=== PATIENT | female | born 1990 | race Caucasian/White ===

== ENCOUNTER → 2020-11-21 16:09 | Outpatient (CLI) | payer BC, SELFPAY | PROVIDERS: Referring Provider Obstetrics & Gynecology; Visit Provider Obstetrics & Gynecology | DX: O20.0 Threatened abortion (principal); Z3A.00 Weeks of gestation of pregnancy not specified | CPT/HCPCS: 84702; 86850; 86900; 86901 ==

== ENCOUNTER → 2020-12-03 16:27 | Outpatient (CLI) | payer BC, SELFPAY ==
[2020-12-03 14:23] VITALS: BMI 26.6
[2020-12-03 17:34] LABS: Amphetamine Urine VISTA NEGATIVE (<1000 ng/mL); Barbiturate Urine VISTA NEGATIVE (< 200 ng/mL); Benzodiazepine Urine VISTA NEGATIVE (< 200 ng/mL); Cocaine Urine VISTA NEGATIVE (< 300 ng/mL); Ecstacy Urine VISTA NEGATIVE (< 500 ng/mL); Methadone Urine VISTA NEGATIVE (< 300 ng/mL); PCP Urine VISTA NEGATIVE (< 25 ng/mL); THC Urine VISTA NEGATIVE (< 50 ng/mL); Vista UDS pH Range 5
[2020-12-06 03:07] LABS: Chlamydia By Nucleic Acid AMP Negative (Negative)
[2020-12-06 07:29] LABS: Gonococcus By Nucleic Acid AMP Negative (Negative)
[2020-12-07 15:44] LABS: HPV APTIMA, High Risk Negative (Negative)
== END ==
PROVIDERS: Referring Provider Obstetrics & Gynecology; Visit Provider Obstetrics & Gynecology
DX: Z34.90 Encounter for supervision of normal pregnancy, unspecified, unspecified trimester (principal)
CPT/HCPCS: 80307; 87086; 87088; 87491; 87591; 87624; 88175; G0145

== ENCOUNTER → 2021-01-25 08:25 | Outpatient (CLI) | payer BC, SELFPAY ==
[2020-12-31 11:25] VITALS: BMI 25.9
[2021-01-25 09:17] LABS: Absolute Lymphocyte Count 0.76 X10^3/uL (0.83-4.51); Absolute Neutrophil Count 4.3 X10^3/uL (2.0-7.7); Basophil# 0.01 X10^3/uL; Basophil% 0.2 % (0-1); Eosinophil# 0.09 X10^3/uL; Eosinophils% 1.6 % (0-5); Hematocrit 39.4 % (37-47); Hemoglobin 13.3 g/dL (12.0-15.0); Lymphocyte # 0.76 X10^3/ul (0.83-4.51); Lymphocyte % 13.5 % (19-41); Mean Corp Hgb Conc 33.8 g/dL (32-36); Mean Corpuscular Hgb 33.1 pg (27.0-32.0); Mean Platelet Vol. 11.6 fl (6.2-12.0); Monocyte# 0.39 X10^3/uL; Monocyte% 6.9 % (0-10); NRBC Flagged by Analyzer 0 % (0-5); Neutrophil # 4.33 X10^3/uL (2.7-7.7); Neutrophil % 77.1 % (47-70); Platelet Count 146 K/mm3 (150-450); RBC Distribution Width CV 13.7 % (11.6-14.6); RBC Distribution Width SD 49.1 fl (35.1-43.9); Red Blood Count 4.02 M/mm3 (4.2-5.4); White Blood Count 5.6 K/mm3 (4.4-11.0)
[2021-01-25 09:41] LABS: Glucose Challenge Gest 1H 50g 103 mg/dL (70-140)
[2021-01-25 10:24] LABS: HIV - WCH Non-Reactive (Nonreactive); Hepatitis B Surface Antigen Non-Reactive (Nonreactive); Hepatitis C Antibody Non-Reactive (Nonreactive); Rubella IgG Reactive (Nonreactive)
== END ==
PROVIDERS: Obstetrics & Gynecology; Referring Provider Obstetrics & Gynecology; Visit Provider Obstetrics & Gynecology
DX: Z34.90 Encounter for supervision of normal pregnancy, unspecified, unspecified trimester (principal)
CPT/HCPCS: 36415; 82950; 85025; 86703; 86762; 86803; 86850; 86900; 86901; 87340

== ENCOUNTER → 2021-04-22 09:16 | Outpatient (CLI) | payer BC, SELFPAY ==
[2021-04-01 11:56] VITALS: BMI 25.9
[2021-04-22 09:39] LABS: Absolute Lymphocyte Count 0.73 X10^3/uL (0.83-4.51); Absolute Neutrophil Count 4.1 X10^3/uL (2.0-7.7); Basophil# 0.02 X10^3/uL; Basophil% 0.4 % (0-1); Eosinophil# 0.05 X10^3/uL; Eosinophils% 0.9 % (0-5); Hematocrit 37.3 % (37-47); Hemoglobin 12.5 g/dL (12.0-15.0); Lymphocyte # 0.73 X10^3/ul (0.83-4.51); Lymphocyte % 13.4 % (19-41); Mean Corp Hgb Conc 33.5 g/dL (32-36); Mean Corpuscular Hgb 33.2 pg (27.0-32.0); Mean Corpuscular Volume 98.9 fL (81-99); Mean Platelet Vol. 10.6 fl (6.2-12.0); Monocyte# 0.43 X10^3/uL; Monocyte% 7.9 % (0-10); NRBC Flagged by Analyzer 0 % (0-5); Neutrophil # 4.12 X10^3/uL (2.7-7.7); Neutrophil % 75.9 % (47-70); Platelet Count 159 K/mm3 (150-450); RBC Distribution Width CV 13.6 % (11.6-14.6); RBC Distribution Width SD 48.7 fl (35.1-43.9); Red Blood Count 3.77 M/mm3 (4.2-5.4); White Blood Count 5.4 K/mm3 (4.4-11.0)
[2021-04-22 10:12] LABS: Glucose Challenge Gest 1H 50g 133 mg/dL (70-140)
== END ==
PROVIDERS: Referring Provider Obstetrics & Gynecology; Visit Provider Obstetrics & Gynecology
DX: Z34.80 Encounter for supervision of other normal pregnancy, unspecified trimester (principal)
CPT/HCPCS: 36415; 82950; 85025

== ENCOUNTER → 2021-05-06 | Outpatient (CLI) | payer BC, SELFPAY ==
[2021-05-06 11:53] VITALS: BMI 28.5
[2021-05-06 16:20] LABS: Amphetamine Urine VISTA NEGATIVE (<1000 ng/mL); Barbiturate Urine VISTA NEGATIVE (< 200 ng/mL); Benzodiazepine Urine VISTA NEGATIVE (< 200 ng/mL); Cocaine Urine VISTA NEGATIVE (< 300 ng/mL); Ecstacy Urine VISTA NEGATIVE (< 500 ng/mL); Methadone Urine VISTA NEGATIVE (< 300 ng/mL); PCP Urine VISTA NEGATIVE (< 25 ng/mL); THC Urine VISTA NEGATIVE (< 50 ng/mL); Vista UDS pH Range 6
== END | disposition home or self-care (01) ==
LOC: LABSPEC 15:27
PROVIDERS: Referring Provider Obstetrics & Gynecology; Visit Provider Obstetrics & Gynecology
DX: F12.90 Cannabis use, unspecified, uncomplicated (principal)
CPT/HCPCS: 80307

== ENCOUNTER → 2021-06-17 15:05 | Outpatient (CLI) | payer BC, SELFPAY | PROVIDERS: Referring Provider Obstetrics & Gynecology; Visit Provider Obstetrics & Gynecology | DX: Z34.90 Encounter for supervision of normal pregnancy, unspecified, unspecified trimester (principal) | CPT/HCPCS: 87081 ==

== ENCOUNTER → 2021-07-01 14:44 | Outpatient (CLI) | payer BC, SELFPAY | PROVIDERS: Referring Provider Obstetrics & Gynecology; Visit Provider Obstetrics & Gynecology | DX: Z34.90 Encounter for supervision of normal pregnancy, unspecified, unspecified trimester (principal) | CPT/HCPCS: 87635; U0005; U0003 ==

== ENCOUNTER 2021-07-05 09:50 | Inpatient (IN) | payer BC, SELFPAY ==
[2021-04-22 09:56] VITALS: BMI 25.9
[2021-07-05] VITALS (18 sets, daily range): BP systolic 92–136; BP diastolic 60–86; PULSE 69–106; RESP 12–18; TEMP 35.6–36.4; O2SAT 93–100; BMI 28.7
[2021-07-05] MEDS: Lactated Ringers 1,000 ML 999 ML IV (10:20)
--- NOTE | 2021-07-05 10:40 | HP.PCM.OB_ITS ---
HPI - General General Date of Admission: 07/05/21 HPI Narrative FAHAD CALDWELL, is a 30 F who presents for RLTCS and BS Maternal Data Information AG Calculator Estimated Delivery Date Method Current WG Current Estimate 07/12/21 LMP (Certain) 39w 0d Other Estimates 07/13/21 Ultrasound #1 38w 6d PFSH PFSH Medical History History of tetanus, diphtheria, and acellular pertussis booster vaccination (Tdap) Home Medications multivitamin no.47-iron fum 27 mg-folate no.1 1 mg-dha 300 mg capsule cap PO 11/28/20 [History Last Taken Unknown] Allergy/AdvReac Type Severity Reaction Status Date / Time Penicillins Allergy Unknown Unknown Verified 07/01/21 13:12 codeine Allergy rash Verified 07/01/21 13:12 Family History Father Hypertension Grandfather Hypertension Grandmother Cancer Skin Grandfather Cancer Lung Surgical History H/O section Social History adopted: No household members: family housing: house number of children: 1 current occupational status: employed current occupation: Realtor pets and animals: Yes Smoking Status: Never smoker second hand exposure: Yes alcohol intake: current alcohol intake frequency: holidays/special occasions only details: not while substance use type: marijuana seatbelt use: always do you feel safe at home: Yes additional social history: - Barron History 2 Elective abortions Hx Para 1 Spontaneous abortions Hx # Term Pregnancies Ectopic pregnancies Hx # Pregnancies Multiple births # of living children 1 Past Pregnancies Del. Date Name GA/Weeks Outcome Route Bth Weight Gen Labor Lgth Anesthesia Del Locatn Provider FOB 12/12/18 Bry 38 live - full term 7lbs 14.5oz Ma le 19 hours epidural [facility] Dr. Kwadwo Mart Delivery Date: 12/12/18 SRoM, pushed for 3.5 hours; failed vacuum; borderline GDM Renae Saavedra Visit Details Expected Delivery Route/Plan RLTCS with SM Labor Preferences- CB/BF classes: no labor support person: Barron labor intervention preferences: [] pain management options preferred: RLTCS cut cord/dad catch: [] : no PP control planned: BS with CS discussed possible routes of delivery and associated risks: [] special requests: [] Plans Covid:nonimmune, counseled regarding risk of covid in vs vaccination and declined vaccination flu vaccine: no tdap vaccine: given rhogam: na LARC form signed: yes movement and labor precautions reviewed. Problem list reviewed and updated with the most current plan of care details and appropriate orders placed. Relevant counseling for the gestational age provided. Continue routine care and follow up unless otherwise noted in visit notes/problem list details OB Flowsheet Initial Weight: 140 lb Date -?-?-?-?-?-?-?-?-?-?-?-?- EGA Weight BP Urine Prot -?-?-?-?-?-?-?-?-?-?-?-?- Glucose FHR FuHt Pres Dilation -?-?-?-?-?-?-?-?-?-?-?-?- Effaced St Visit Note 12/03/20 -?-?-?-?-?-?-?-?-?-?-?-?- 8w 3d 141 lb (+16 oz) 114/80 -?-?--?-?-?-?-?-?-?-?-?-?- 170 -?-?-?-?-?-?-?-?-?-?-?-?- GP - CRL 16mm co nsistent with LMP. 12/31/20 -?-?-?-?-?-?-?-?-?-?-?-?- 12w 3d 137 lb 8 oz (-2 lb 8 oz) 116/78 Negative -?-?-?-?-?-?-?-?-?-?-?-?- Negative 160 -?-?-?-?-?-?-?-?-?-?-?-?- GP - no cramping or bleeding. Anatomy scan ordered. Has not yet done NOB labs and GCT - will do before next visit. 01/28/21 -?-?-?-?-?-?-?-?-?-?-?-?- 16w 3d 139 lb (-16 oz) 120/82 -?-?-?-?-?-?-?-?-?-?-?-?- 145 -?-?-?-?-?-?-?-?-?-?-?-?- SM- no vb crampi ng 02/25/21 -?-?-?-?-?-?-?-?-?-?-?-?- 20w 3d 142 lb 2 oz (+2 lb 2 oz) 120/80 Negative -?-?-?-?-?-?-?-?-?-?-?-?- Negative 150 -?-?-?-?-?-?-?-?-?-?-?-?- GP - no LOF, VB, DFM, ctx. Anatomy scan today. 04/01/21 -?-?-?-?-?-?-?-?-?-?-?-?- 25w 3d 147 lb (+7 lb) 120/76 Negative -?-?-?-?-?-?-?-?-?-?-?-?- Negative 145 25 -?-?-?-?-?-?-?-?-?-?-?-?- Sm- no vb lof go od fm no reuglar ctx 04/22/21 -?-?-?-?-?-?-?-?-?-?-?-?- 28w 3d 148 lb 6 oz (+8 lb 6 oz) 118/64 Trace -?-?-?-?-?-?-?-?-?-?-?-?- Negative 149 28 -?-?-?-?-?-?-?-?-?-?-?-?- MH-No VB, LOF. G ood FM. 28 wk labs, tdap, larc 05/06/21 -?-?-?-?-?-?-?-?-?-?-?-?- 30w 3d 151 lb 4 oz (+11 lb 4 oz) 138/92 116/78 Negative -?-?-?-?-?-?-?-?-?-?-?-?- Negative 145 30 -?-?-?-?-?-?-?-?-?-?-?-?- GP - no LOF, VB, dFM, ctx. Denies complaints. Initial BP high - repeat nl. 05/20/21 -?-?-?-?-?-?-?-?-?-?-?-?- 32w 3d 150 lb 6 oz (+10 lb 6 oz) 118/72 Negative -?-?-?-?-?-?-?-?-?-?-?-?- Negative 130 32 -?-?-?-?-?-?-?-?-?-?-?-?- GP - no LOF, VB, DFM, ctx. Denies complaints. 06/17/21 -?-?-?-?-?-?-?-?-?-?-?-?- 36w 3d 156 lb (+16 lb) 114/70 Negative -?-?-?-?-?-?-?-?-?-?-?-?- Negative 130 37 -?-?-?-?-?-?-?-?-?-?-?-?- SM- no vb lof go od fm no reuglar ctx gbs done 06/24/21 -?-?-?-?-?-?-?-?-?-?-?-?- 37w 3d -?--?-?-?-?-?-?-?-?-?-?-?- 130 -?-?-?-?-?-?-?-?-?-?-?-?- SM- co nodular r shagufta over back buttox arms and some on belly, pruritic. steroids ordered. no vb lof good fm no reuglar ctx 07/01/21 -?-?-?-?-?-?-?-?-?-?-?-?- 38w 3d 156 lb 6 oz (+16 lb 6 oz) 110/88 Negative -?-?-?-?-?-?-?-?-?-?-?-?- Negative 131 38 -?-?-?-?-?-?-?-?-?-?-?-?- MH-No VB, LOF. N o reg CTX, declines internal. Good FM. CS scheduled 07/06 noon. aware to arrive 2 hr prior. Call prior. Information and drink given. 07/05/21 -?-?-?-?-?-?-?-?-?-?-?-?- 39w 0d 152 lb 1.903 oz (+12 lb 1.903 oz) -?-?-?-?-?-?-?-?-?-?-?-?- -?-?-?-?-?-?-?-?-?-?-?-?- NST FHR Rate Baby A Baseline: 130 ROS Constitutional Constitutional: Reports systems reviewed and no addt'l complaints, except as documented Eyes Eyes: Denies change in vision ENT HEENT: Reports systems reviewed and no addt'l complaints, except as documented; Denies headache(s) Cardiovascular Cardiovascular: Reports systems reviewed and no addt'l complaints, except as documented; Denies chest pain or dyspnea Respiratory/Chest Respiratory/Chest: Reports systems reviewed and no addt'l complaints, except as documented Gastrointestinal Gastrointestinal: Reports systems reviewed and no addt'l complaints, except as documented; Denies abdominal pain Genitourinary Genitourinary: Reports systems reviewed and no addt'l complaints, except as documented, contractions Details: present (irregular) and movement Details: present; Denies dysuria or genital lesions Musculoskeletal Musculoskeletal: Reports systems reviewed and no addt'l complaints, except as documented Neurologic Neurologic: Reports systems reviewed and no addt'l complaints, except as documented Endocrine Endocrinology: Reports systems reviewed and no addt'l complaints, except as documented Vital Signs Vital Signs Vital Signs: Weight Weight: 152 lb 1.903 oz Body Mass Index (BMI) 28.7 Physical Exam Const alert, oriented x3, no apparent distress and healthy appearing HEENT normocephalic and moist oral mucous membranes Head and Scalp: atraumatic Neck full ROM, no lymphadenopathy, supple and thyroid normal General: trachea midline Lymph Lymphatic: no lymphadenopathy noted Chest inspection of chest normal Resp normal respiratory effort Cardio regular rate GI normal to inspection, nondistended, normoactive bowel sounds, soft to palpation and non-tender Inspection: gravid external exam normal Manual OB Exam: estimated gestational size appropriate, presentation cephalic, dilated, effaced and station Extremity normal to inspection General Extremity: Negative for edema Skin no rashes or lesions noted Neuro no focal motor deficits and deep tendon reflexes 2+ bilaterally Motor Exam: strength 5/5 throughout and clonus absent Psych mental status grossly normal Labs Labs Labs: Blood Type A POSITIVE Antibody Screen NEGATIVE Hct 37.3 % (37-47) Hgb 12.5 g/dL (12.0-15.0) Syphilis Total Ab Pending Rubella IgG Antibody Reactive (Nonreactive) Hep Bs Antigen Non-Reactive (Nonreactive) Neisseria gonorrhoeae DNA (JARVIS) Negative (Negative) HIV 1&2 Antibody Non-Reactive (Nonreactive) Glucose 1 Hr 50 gm 133 mg/dL (70-140) Assessment & Plan (1) : QUALIFIERS: Weeks of gestation: 38 weeks Qualified Code(s): Z3A.38 - 38 weeks gestation of COMMENT: declines carrier and genetic, ntd screening. nl anatomy; NEG COVID (2) H/O section: COMMENT: 2019- pushed for 3.5 hours failed vacuum. Plan RCD w SM. RLTCS 07/05/21 @ 12 (3) Supervision of other normal : COMMENT: PRR AG 07/12/21, boy, PC: Bry Spouse: Barron (4) Marijuana use: COMMENT: prior to - has not used since finding out she was expecting (5) H/O depression, currently : COMMENT: undiagnosed. Did see counselor. Stable, declines med. Info on counselors given (6) Rash: COMMENT: possible pupps, ordered steroid pack. recommend urgent care eval to rule out infecitous etiology first. (7) Sterilization:
[2021-07-05 10:41] LABS: Absolute Lymphocyte Count 0.77 X10^3/uL (0.83-4.51); Absolute Neutrophil Count 3.9 X10^3/uL (2.0-7.7); Basophil# 0.01 X10^3/uL; Basophil% 0.2 % (0-1); Eosinophil# 0.03 X10^3/uL; Eosinophils% 0.6 % (0-5); Hematocrit 34.2 % (37-47); Hemoglobin 11.4 g/dL (12.0-15.0); Lymphocyte # 0.77 X10^3/ul (0.83-4.51); Lymphocyte % 15.1 % (19-41); Mean Corp Hgb Conc 33.3 g/dL (32-36); Mean Corpuscular Hgb 29.5 pg (27.0-32.0); Mean Corpuscular Volume 88.4 fL (81-99); Mean Platelet Vol. 11.2 fl (6.2-12.0); Monocyte# 0.31 X10^3/uL; Monocyte% 6.1 % (0-10); NRBC Flagged by Analyzer 0 % (0-5); Neutrophil # 3.92 X10^3/uL (2.7-7.7); Neutrophil % 76.8 % (47-70); Platelet Count 171 K/mm3 (150-450); RBC Distribution Width CV 13.9 % (11.6-14.6); RBC Distribution Width SD 44.5 fl (35.1-43.9); Red Blood Count 3.87 M/mm3 (4.2-5.4); White Blood Count 5.1 K/mm3 (4.4-11.0)
[2021-07-05] MEDS: Acetaminophen 500 MG Tablet 1000 MG PO ×3 (10:41→22:48)
[2021-07-05 10:57] LABS: Amphetamine Urine VISTA NEGATIVE (<1000 ng/mL); Barbiturate Urine VISTA NEGATIVE (< 200 ng/mL); Benzodiazepine Urine VISTA NEGATIVE (< 200 ng/mL); Cocaine Urine VISTA NEGATIVE (< 300 ng/mL); Ecstacy Urine VISTA NEGATIVE (< 500 ng/mL); Methadone Urine VISTA NEGATIVE (< 300 ng/mL); PCP Urine VISTA NEGATIVE (< 25 ng/mL); THC Urine VISTA NEGATIVE (< 50 ng/mL); Vista UDS pH Range 7
[2021-07-05] MEDS: Lactated Ringers 1,000 ML 150 ML IV (11:03)
[2021-07-05 11:40] LABS: Syphilis Antibodies Non-reactive
[2021-07-05] MEDS: Sodium Citrate/Citric Acid 30 ML UDC PO (12:08)
[2021-07-05] MEDS: Cefazolin 2 GM in 0.9% Normal Saline 100 ML IV (12:16)
[2021-07-05] MEDS: Oxytocin 30 units/NS 500 ml 30 UNITS/500 ML IV.SOLN 167 UNITS IV (13:40)
--- NOTE | 2021-07-05 14:22 | FALS_PTH ---
PATIENT: FAHAD CALDWELL LOC: [facility] U#:[id number] AGE/SX: 30/F ROOM: [facility] RE07/05/[address]: Dr. Katharina Echavarria MD : 1990 BED: 1 DIS: 07/06/2021 SPEC #: [id number] RECD: 07/08/21 08:01 STATUS: LUCERO REKojo #: [id number] SHAHANA: 07/05/21 14:[address]: Katharina Echavarria DEPT: SURGICAL PATHOLOGY RECD BY: Rosi Schmitz ENTERED: 07/08/21 08:02 SP TYPE: FALL TUBES OTHR DR: Renetta Primary Care Phys Tissues: Fallopian tube Procedures: Surgery Specimen Level II HEADER OPERATION: Tubal ligation PRE-OP DIAGNOSIS: Sterilization TISSUE SUBMITTED: Fallopian tubes MICROSCOPIC DIAGNOSIS Right and left fallopian tubes, bilateral salpingectomies: Two complete segments of fallopian tubes. Benign paratubal cysts. AM:promise 07/09/2021 MICROSCOPIC DESCRIPTION Slides are reviewed. GROSS DESCRIPTION Received in fixative is one container labeled with the patient's name and designated bilateral fallopian tubes. The specimen consists of two fallopian tubes with an average length of 6 cm and has an average diameter of 1 cm. Both fallopian tubes have normal fimbriated ends. No mass lesions are identified. Animated Cartoons Painter sections are submitted in two cassettes as follows: 1 - fallopian tube with suture, 2??fallopian tube without suture. / AM:promise 07/08/21 TC:5 CPT: 69912 x2
[2021-07-05] MEDS: Lactated Ringers 1,000 ML 100 ML IV (17:55)
--- NOTE | 2021-07-05 20:50 | OP.PCM_ITS ---
Assessment & Plan (1) delivery delivered: COMMENT: RLTCS BS SM nicholas deacon 39 (2) Sterilization: (3) Rash: COMMENT: possible pupps, ordered steroid pack. recommend urgent care eval to rule out infecitous etiology first. (4) H/O depression, currently : COMMENT: undiagnosed. Did see counselor. Stable, declines med. Info on counselors given (5) Marijuana use: COMMENT: prior to - has not used since finding out she was expecting (6) Supervision of other normal : COMMENT: PRR AG 07/12/21, boy, PC: Bry Spouse: Barron (7) H/O section: COMMENT: 2019- pushed for 3.5 hours failed vacuum. [facility] (8) : QUALIFIERS: Weeks of gestation: 38 weeks Qualified Code(s): Z3A.38 - 38 weeks gestation of COMMENT: declines carrier and genetic, ntd screening. nl anatomy; NEG C OVID Maternal Data Information AG Calculator Estimated Delivery Date Method Current WG Current Estimate 07/12/21 LMP (Certain) 39w 0d Other Estimates 07/13/21 Ultrasound #1 38w 6d Final AG Source: LMP Details Operative Information Date of Procedure: 07/05/21 Pre-Operative Diagnosis: Previous Post-Operative Diagnosis: same Indications for : Repeat Elective and Desires elective sterilization Classification: Scheduled Procedure Type: bilateral salpingectomy (LTCS) Type of Anesthesia: Spinal Special Medications: none Antibiotic Given: Ancef 2 grams IV x1 Drain: Petty to straight drain Estimated Blood Loss: 800 Fluids Replaced: crystalloid Findings Description of Procedure: Spinal anesthesia was placed without difficulty. Petty catheter was placed. The patient was placed in the dorsal supine position with leftward tilt. Patient was prepped and draped in the normal sterile fashion. Pfannenstiel skin incision was made with the scalpel above and below previous keloid scar which was removed, and carried through to the underlying layer of fascia with the scalpel. Fascia was nicked in the midline and the incision extended laterally. The rectus bellies were dissected off superiorly and inferiorly with out complication both sharply and bluntly. The peritoneum was entered digitally. The incision was stretched and a low transverse uterine incision was made with the scalpel. The 's head was delivered a traumatically followed by the anterior and posterior shoulders without complication the rest of the delivered. The cord was clamped and cut and the was handed off to awaiting nurse. The placenta was delivered spontaneously immediately following and was noted to be intact and have a three- vessel cord. The uterus was exteriorized cleared of all clots and debris, and the incision was closed in a single layer closure using #1 Monocryl. The ovaries and fallopian tubes were noted to be within normal limits. Patient had desired sterilization and was counseled preoperatively regarding irreversibility and permanency. Therefore bilateral fallopian tubes were elevated and transected across using a LigaSure device starting proximally to distally without complication the entire fallopian tubes were removed. The uterus was returned to the maternal abdomen and gutters were cleared of all clots and debris. The peritoneum was closed with 3-0 Monocryl in a running fashion. Gloves were changed prior to fascial closure. Fascia was closed with 0 PDS in a running fashion. Subcutaneous tissue was copiously irrigated and the skin was closed with 3-0 Monocryl in a subcuticular fashion. Mepilex dressing was applied without complication. Patient was taken to recovery in stable condition. Amniotic Membrane Rupture Type: Artificial Amniotic Fluid Description: Clear Placenta Disposition: [facility] Cord Vessel Description: 3 Vessels Cord Entanglement: None Delayed Cord Clamping: Yes Complications Risks of Surgery Discussed w/Patient: Bleeding, Infection, Need for Future C- Sections and Injury to surrounding structure(s) including bowel and bladder Vaginal Delivery Complication Complications: None Admit VTE Documentation VTE Present on Admission: No VTE Mechan Device Prophylaxis: SCD's Multi Select Codes Urinary/Genital Urinary/Genital CPT Codes: 48926 C/S+TL (bilateral salpingectomy)
[2021-07-05] MEDS: Ketorolac 30 MG/ML Syringe IV (20:53)
--- NOTE | 2021-07-05 20:53 | PCM.DC ---
Discharge Instructions Diet Discharge Diet: No restrictions Activity Discharge Activity: May Not Drive (for 2 weeks or while taking narcotic pain medications.), May Shower and May Take a Tub Bath (in 7 days) May shower in (days): 0 May resume sexual activity in: 4-6 weeks Weight Bearing Status: Full weight bearing Lifting Restrictions: 20 pounds Dressing / Incision Call your doctor if your incision/area has: Continuous Slow Oozing, Sudden Increased Bleeding, Increased Pain/ Swelling, Increased Redness and Foul Smelling Discharge Call your doctor if you observe: Fever of 101 or Higher and Using more than 1 pad per hour (for 2 hours) Suture Line Care: Avoid Pulling/Pushing and Avoid Pinching/Bending Cleanse incision/area with: Soap & Water and Keep Dressing Clean & Dry Follow Up Care Please Follow Up With: Katharina Echavarria MD When: Call [phone] to make an appointment for an incision check in 1-2 weeks. Test Results: Test results from this visit will be discussed in further detail at your follow-up appointment, if applicable. Discharge Plan Admission Admit Date/Time: 07/05/21 09:50 Primary Reason for Your Visit: csection Attending Provider: Katharina Echavarria Primary Care Provider: Care Physician,Renetta Primary Discharge Orders/Prescriptions Prescriptions: New oxycodone-acetaminophen [Percocet] 5-325 mg tablet 1 tab PO Q6H PRN (Reason: pain) 7 Days Qty: 20 RF: 0 naproxen [naproxen] 500 MG tablet 500 mg PO BID PRN PRN (Reason: Pain) Qty: 30 RF: 1 Referrals / Follow Up: Care PhysicianRenetta Primary [Primary Care Provider] - Disposition Disposition (needs filled in before D/C Order can be placed): Home, Self Care
[2021-07-05] MEDS: DiphenhydrAMINE 25 MG Capsule PO (22:48)
[2021-07-06 00:02] VITALS: BP 108/73; PULSE 80; RESP 18; TEMP 36.3; O2SAT 99
[2021-07-06 02:00] VITALS: PULSE 89; RESP 18; O2SAT 98
[2021-07-06] MEDS: Ketorolac 30 MG/ML Syringe IV ×3 (02:21→14:26)
[2021-07-06 03:46] VITALS: BP 116/73; PULSE 80; RESP 16; TEMP 36.4; O2SAT 99
--- NOTE | 2021-07-06 05:30 | NURSING ---
RT called to bring incentive spirometer to pt room, RN unable to find one on unit.
[2021-07-06] MEDS: Acetaminophen 500 MG Tablet 1000 MG PO ×3 (05:36→16:52)
[2021-07-06 05:47] LABS: Hematocrit 32.4 % (37-47); Hemoglobin 10.1 g/dL (12.0-15.0); Mean Corp Hgb Conc 31.2 g/dL (32-36); Mean Corpuscular Hgb 29.1 pg (27.0-32.0); Mean Corpuscular Volume 93.4 fL (81-99); Mean Platelet Vol. 10.8 fl (6.2-12.0); Platelet Count 162 K/mm3 (150-450); RBC Distribution Width CV 13.9 % (11.6-14.6); RBC Distribution Width SD 47.1 fl (35.1-43.9); Red Blood Count 3.47 M/mm3 (4.2-5.4); White Blood Count 7.5 K/mm3 (4.4-11.0)
--- NOTE | 2021-07-06 07:09 | PCM.PN.OB ---
Subjective Subjective Patient doing well without complaints. Tolerating PO. Ambulating and voiding without difficulty. feeding well. Denies chest pain, shortness of breath, calf pain/swelling, fevers, chills, lightheadedness. Objective Data Objective Data Vital Signs: Vital Signs Temp Pulse Resp BP Pulse Ox 97.6 F L 80 16 116/73 99 07/06/21 03:46 07/06/21 03:46 07/06/21 03:46 07/06/21 03:46 07/06/21 03:46 Oxygen Delivery Method Room Air Weight: 152 lb 1.903 oz Body Mass Index (BMI) 28.7 Intake & Output: Intake and Output for Last 24 Hours 07/04/21 07/05/21 07/06/21 23:59 23:59 23:59 Intake Total 2325 / 2325 1000 / 1000 Output Total 1100 / 1100 400 / 400 Balance 1225 / 1225 600 / 600 Lab / Micro Data Result Diagrams: 07/06/21 05:40 Labs: Laboratory Results - last 24 hr 07/05/21 10:10: Urine Opiates Screen NEGATIVE, Urine Methadone Screen NEGATIVE, Ur Barbiturates Screen NEGATIVE, Ur Phencyclidine Scrn NEGATIVE, Ur Amphetamines Screen NEGATIVE, U Methamphetamin-MDMA NEGATIVE, U Benzodiazepines Scrn NEGATIVE, Urine Cocaine Screen NEGATIVE, U Cannabinoids Screen NEGATIVE, Ur Drug Screen Comment 07/05/21 10:10: Syphilis Total Ab Non-reactive 07/05/21 10:30: WBC 5.1, RBC 3.87 L, Hgb 11.4 L, Hct 34.2 L, MCV 88.4, MCH 29.5, MCHC 33.3, RDW Std Deviation 44.5 H, RDW Coeff of José 13.9, Plt Count 171, MPV 11.2, Immature Gran % (Auto) 1.200 H, Neut % (Auto) 76.8 H, Lymph % (Auto) 15.1 L, Scurry % (Auto) 6.1, Eos % (Auto) 0.6, Baso % (Auto) 0.2, Absolute Neuts (auto) 3.9, Absolute Lymphs (auto) 0.77 L, Nucleated RBC % 0 07/05/21 10:30: Blood Type A POSITIVE, Antibody Screen NEGATIVE 07/06/21 05:40: WBC 7.5, RBC 3.47 L, Hgb 10.1 L, Hct 32.4 L, MCV 93.4 D, MCH 29.1, MCHC 31.2 L D, RDW Std Deviation 47.1 H, RDW Coeff of José 13.9, Plt Count 162, MPV 10.8 ROS Constitutional Constitutional: Reports systems reviewed and no addt'l complaints, except as documented Cardiovascular Cardiovascular: Reports systems reviewed and no addt'l complaints, except as documented Respiratory/Chest Respiratory/Chest: Reports systems reviewed and no addt'l complaints, except as documented Gastrointestinal Gastrointestinal: Reports systems reviewed and no addt'l complaints, except as documented Physical Exam Const alert, oriented x3 and no apparent distress HEENT Head and Scalp: atraumatic Resp normal respiratory effort GI soft to palpation and non-tender Inspection: incision intact, healing well and drainage (none) Bimanual Exam - Vag & Uterus: uterus non-tender Uterus Palpation: uterus fundus firm (below Umbilicus) Assessment & Plan (1) [facility]: [facility]
[2021-07-06 08:00] VITALS: BP 108/70; PULSE 70; RESP 15; TEMP 36.2; O2SAT 96
[2021-07-06] MEDS: 0.9% Saline Lock 10 ML Syringe IV ×3 (08:49→14:28)
[2021-07-06] MEDS: Senna/Docusate Sodium 1 Tablet PO (11:18)
[2021-07-06 12:40] VITALS: BP 121/82; PULSE 80; RESP 16; TEMP 35.8; O2SAT 98
--- NOTE | 2021-07-06 14:48 | NURSING ---
5476 pt c/o rt neck/shoulder pain- pt states that it feels muscular- when asks the patient does describe having a mild frontal headache 09/30; pt repositioned to supine in bed for 15 minutes- pt states that her headache is gone but her neck and shoulder pain feel the same;
--- NOTE | 2021-07-06 15:44 | CASEMGMT ---
TATO Note Referral Source: MD Referral Reason: Use marijuana, but not during the SW met with patient in her room. No other family members present. Patient was holding the and appeared to be appropriately bonding. She would smile at times during the interaction with this designer/writer. Patient did appear tired. TATO asked RN Abigail if she had any concerns and she said that patient did not use marijuana during the and that the mother's tox screen was negative and they did not do tox for the . Abigail said that patient appeared tired. Of note patient completed the PHQ-9 and scored a 5. Thus she was given a resource list of counselors. Mom: Elizabeth Alvarez PNC: Dr. Cruz Anna Control: Tubal ligation Baby: Deacon Ulloa 07/05/21 Apgars: 8/9 Weight 7#2 ounces Wood Machinist: Dr. Mccray Bottle feeding MOB's other children: Bry, boy, age 2 1/2 Housing: Patient and her , Barron, and 2 boys reside in a home Transportation: Patient can drive and has access to a vehicle Supplies: Patient reports that she has all supplies including diapers, clothes and car seat Supports: Patient said that her is a support. Patient said that her mom lives 45 minutes away and is a support and her grandmother resides 3 minutes away and is a support. Education: Patient graduated high school. No learning issues or delays. 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 Patient said that she is going to take a limited time off but not too long. She said that she plans to make appointments 1 month into her leave but will scheduled appointments 2 weeks prior and 2 weeks after the month period. Patient said that she will probably take 2 months off but with appointments during that time. Patient said that her grandmother will watch her children while she works. Agency Involvement: NO DJFS, WIC, Help Me Grow, Counseling, Legal or CSB involvement. FOB: Barron, Time together: 11 years Involved at : Yes, per patient Employment: [email or web address] in [place]. Patient said that FOB got 1 day off for the baby's , which was last week when she had false labor but he will take 1 week of vacation time off. 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 She reports that she had crying spells and isolation which lasted a few months. Patient denied SI/HI. Patient said that she went to a counselor but not that long as we didn't click but the counselor was able to put a name to it and then patient said it was like a flipped switch and she felt better. Patient has not been on medication for depression, anxiety or post depression. Patient was educated on Post Depression. Patient was educated on Shaken baby Syndrome. Patient was educated on safe sleeping Patient was asked if she would resume marijuana use and she was vague and noncommittal to stopping or resumption of marijuana. SW discussed with her a safe plan regarding her use which included having someone else watch her child and only smoking marijuana outside to protect the and older children's lungs. Patient verbalized understanding. Patient denied any other drug use. SW provided patient with handouts including depression and anxiety and post support phone number, [facility] Mom's of Newborns, Depression and Post depression checklist of symptoms, 10 facts about depression and anxiety, Safe sleeping handout, HMG handout, Counseling handout and list of on line resources for post mood and anxiety disorder. SW updated patient's RN that patient was seen. RN abigail will give patient information on resources due to score of 5 on PHq 9. SW confirmed no tox screen for . No other issues or concerns voiced. Plan: Home at discharge Shanell HEWITT
[2021-07-06 16:37] VITALS: BP 131/86; PULSE 77; RESP 16; TEMP 36.1; O2SAT 98
--- NOTE | 2021-07-06 16:40 | NURSING ---
1625 pt c/o pain rating a 03/30 requesting pain medication- dr castellon called and notified of pts pain order received for oxycodone; If pain improves with medication then pt can still be discharged tonight and if pain doesnt improve plan is to notify dr castellon and discuss staying verses discharge
[2021-07-06] MEDS: oxyCODONE 5 MG Tablet PO (16:46)
--- NOTE | 2021-07-06 17:24 | NURSING ---
1700 discharge talk done pt verbalizes understanding;
--- NOTE | 2021-07-06 18:16 | NURSING ---
1800 pt states that her pain is much better; pt rates a 2/10; pt states that she is comfortable going home at this pain level and pt has her Percocet prescription filled; sl dc'ed; infant placed in car seat per mother; dc to home at 1810
[2021-07-09 15:46] LABS: Pathology Specimen OB SEE PATHOLOGY REPORT
== END 2021-07-06 18:10 | disposition home or self-care (01) | DRG 785 ==
PROVIDERS: Admitting Provider Obstetrics & Gynecology; Visit Provider Obstetrics & Gynecology
PROC: 10D00Z1 Extraction of Products of Conception, Low, Open Approach (ICD-10-PCS; CPT 59514; principal; 2021-07-05 12:00)
DX: O34.219 Maternal care for unspecified type scar from previous cesarean delivery (principal); Z37.0 Single live birth; L91.0 Hypertrophic scar; Z30.2 Encounter for sterilization; Z3A.38 38 weeks gestation of pregnancy
CPT/HCPCS: 80307; 85025; 85027; 86780; 86850; 86900; 86901; 88302; 99218; J7120; A4216; G0378; J2405